=== PATIENT | male | born 1995 | race Caucasian/White ===

== ENCOUNTER 2019-02-02 19:26 | Emergency (ER) | payer OTHER ==
[~2019-02-02] VITALS: Ht 170.2 cm; Wt 61.8 kg
[~2019-02-02 19:26] MED LIST: BENTYL 20 MG TA20 M1 PO; CIPRO500 MG PO; CIPROFLOXACIN500 M1 PO; FLAGYL500 MG PO; HYDROCODON-ACE1 EAC7 PO; IBUPROFEN 200200 M1 PO; IBUPROFEN 600600 M1 PO; IBUPROFEN 800800 MG PO; KEFLEX500 MG PO; NORCO 5-325 TA1 EACH PO; ONDANSETRON HCL4 M2 PO; PROMETHAZINE12.5 M1 PO; ROBAXIN500 MG PO; TRAMADOL 50 MG50 MG PO; ZOFRAN ODT4 MG PO; ZOLOFT25 MG PO
[2019-02-02] MEDS ORDERED: ACETAMINOPHEN-1 EAC1 PO (22:14)
[2019-02-02] MEDS ORDERED: TORADOL 10 MG T10 MG PO (22:14)
[2019-02-02 22:31] VITALS: BP 130/83
== END 2019-02-02 22:32 | disposition home or self-care (01) ==
LOC: M.ERS 19:26
DX: S62.101A Fracture of unspecified carpal bone, right wrist, initial encounter for closed fracture (principal); S00.83XA Contusion of other part of head, initial encounter; Z91.041 Radiographic dye allergy status; Z90.49 Acquired absence of other specified parts of digestive tract; Y04.2XXA Assault by strike against or bumped into by another person, initial encounter; Y92.89 Other specified places as the place of occurrence of the external cause; Y93.89 Activity, other specified; Y99.8 Other external cause status

== ENCOUNTER 2019-03-10 17:08 | Emergency (ER) | payer OTHER ==
[~2019-03-10] VITALS: Ht 170.2 cm; Wt 63.5 kg
[~2019-03-10 17:08] MED LIST changes: +ACETAMINOPHEN-1 EAC1 PO; +TORADOL 10 MG T10 MG PO
[2019-03-10 17:25] LABS: URINE BILIRUBIN NEGATIVE (Negative); URINE BLOOD NEGATIVE (Negative); URINE CLARITY CLEAR; URINE COLOR YELLOW; URINE GLUCOSE-RANDOM NEGATIVE (Negative); URINE KETONES NEGATIVE (Negative); URINE LEUKOCYTES-REFLEX NEGATIVE (Negative); URINE NITRITE-REFLEX NEGATIVE (Negative); URINE PROTEIN NEGATIVE (Negative); URINE UROBILINOGEN 0.2 E.U./dl (0.2-1.0)
[2019-03-10 17:54] LABS: ABSOLUTE BASOPHILS 0.1 thou/uL (0.0-0.2); ABSOLUTE EOSINOPHILS 0.1 thou/uL (0.0-0.7); ABSOLUTE LYMPHOCYTES 1.9 thou/uL (0.8-5.3); ABSOLUTE MONOCYTES 0.5 thou/uL (0.0-1.2); ABSOLUTE NEUTROPHILS 3.4 thou/uL (1.6-8.1); BASOPHILS 1.3 %; EOSINOPHILS 1.4 %; HEMATOCRIT 42.8 % (42.0-52.0); LYMPHOCYTES 32.6 %; MCH 33.4 pg (26.0-34.0); MCV 95.4 fL (80.0-100.0); MPV 7.5 fl. (7.2-11.1); NUCLEATED RBCS 0 /100WBC; PLATELET COUNT* 259 thou/uL (150-400); POLYS 56.7 %; RBC 4.49 mil/uL (4.50-6.00); RDW-CV 13.4 % (10.5-14.5)
[2019-03-10 18:01] LABS: CALCIUM 9.3 mg/dL (8.5-10.1); CREATININE 0.9 mg/dL (0.6-1.3); POTASSIUM 3.8 mmol/L (3.5-5.1)
[2019-03-10 18:05] LABS: ALBUMIN 4.2 g/dL (3.4-5.0); TOTAL BILIRUBIN 0.6 mg/dL (<0.1-1.0); TOTAL PROTEIN 7.5 g/dL (6.4-8.2)
[2019-03-10] MEDS ORDERED: CIPRO500 M1 PO (19:00)
[2019-03-10] MEDS ORDERED: FLAGYL500 M1 PO (19:00)
[2019-03-10] MEDS ORDERED: NORCO 5-325 TA1 EACH PO (19:02)
[2019-03-10] MEDS ORDERED: ACETAMINOPHEN-1 EAC1 PO (19:03)
[2019-03-10] MEDS ORDERED: OMEPRAZOLE 20 M20 M1 PO (19:12)
[2019-03-10] MEDS ORDERED: CARAFATE 1 GM TA1 G1 PO (19:12)
[2019-03-10 19:26] VITALS: BP 127/87
== END 2019-03-10 19:28 | disposition home or self-care (01) ==
LOC: M.ERS 17:08
PROVIDERS: Nurse Practitioner Family
DX: K52.9 Noninfective gastroenteritis and colitis, unspecified (principal); F17.210 Nicotine dependence, cigarettes, uncomplicated; Z90.49 Acquired absence of other specified parts of digestive tract; Z86.14 Personal history of Methicillin resistant Staphylococcus aureus infection; Z91.041 Radiographic dye allergy status

== ENCOUNTER 2019-03-15 16:11 | Inpatient (IN) | payer OTHER ==
[~2019-03-15] VITALS: Ht 170.2 cm; Wt 73.5 kg
--- NOTE | ~2019-03-15 | CON ---
[address] [address] CONSULTATION Name: CHARITY COLLINS Room: [address] IN .R.#: [id number] Admission: 03/15/19 Attend Phys: Lyndsey Garcai Discharge: Date of : 95 Report #: [id number] THIS REPORT FOR: //name// CC: ALPHONSO physician/PCP Sue Weber DATE OF SERVICE: 03/16/2019 NEPHROLOGY CONSULTATION: CONSULTING PHYSICIAN: Dr. Villanueva. REASON FOR NEPHROLOGY CONSULTATION: Acute kidney injury. REASON FOR ADMISSION: Bloody stool and acute renal insufficiency. HISTORY OF PRESENT ILLNESS: This is a 23-year-old male who has no past medical history, has been having vomiting and diarrhea for the past 1-1/2 weeks and has not been eating much. He was in the hospital here 1 week ago and he was given a shot of Toradol. He was also taking ibuprofen at home every 6-8 hours and was discharged with Cipro and Flagyl from the ER, which he has been taking, but his symptoms did not improve, hence he came to the ER yesterday. His creatinine was found to be 2.6 on admission and 3.6 subsequently. His CPK level is normal. He is also having some pain when he urinates, but UTI was ruled out. Bladder scan is yet to be checked. He has no history of any kidney stones and renal imaging did not show any stones or obstruction as well. ALLERGIES: BARIUM, IODINE. REVIEW OF SYSTEMS: As mentioned in history of present illness, otherwise negative. PAST MEDICAL HISTORY: Which includes nothing. PAST SURGICAL HISTORY: Tonsillectomy and appendectomy. FAMILY HISTORY: Hypertension, diabetes, blood clots, and CAD and one cousin on father's side has kidney stones. HOME MEDICATIONS: Recently started omeprazole, Tylenol with Codeine. He was taking ibuprofen, Cipro and Flagyl. PHYSICAL EXAMINATION: VITAL SIGNS: Blood pressure is 121/79, respiratory rate is 18, pulse rate of 46, temperature 36.7, pulse ox 99% on room air. GENERAL: He is awake and alert, but he is quite [place] [address] CONSULTATION Name: CHARITY COLLINS Room: [address] IN [facility]#: [id number] Admission: 03/15/19 Attend Phys: Lyndsey Garcia Discharge: Date of : 95 Report #: [id number] symptoms. He is oriented x 3. HEAD AND EYES: Normocephalic and atraumatic. EARS, NOSE, AND THROAT: Mucous membranes are moist. CHEST: Bilaterally clear to auscultation, no crackles or wheezing. CARDIOVASCULAR: S1, S2 normal, no murmurs are heard. ABDOMEN: Soft, nondistended, nontender, normal bowel sounds present. EXTREMITIES: There is no lower extremity edema, symmetrical lower extremities. NEUROLOGICAL FUNCTION: Gross neurological function seems to be intact. PSYCHIATRIC: Mood and affect seem to be normal. LABORATORY DATA: Hemoglobin 13.4, potassium 3.2, sodium 143, creatinine 3.2, BUN is 18. Other labs were reviewed. IMAGING: Renal CT was reviewed. ASSESSMENT: 1. Acute kidney injury in the setting of dehydration due to diarrhea, vomiting, poor oral intake and NSAID use, creatinine is 0.9 on 03/10/2019 and 2.6 on admission, now creeping up. 2. Diarrhea, bloody stools and vomiting as per Internal Medicine and he is on ciprofloxacin and Flagyl. 3. No evidence of any rhabdomyolysis. 4. Burning when he urinates, but no evidence of urinary tract infection. 5. Difficulty urinating, bladder scan to be checked. 6. Hypokalemia. PLAN: Potassium will be replaced, continue IV fluids, normal saline at 150 mL an hour, check a bladder scan, I's and O's. Labs in the morning. Thank you for this consultation. We will continue to follow along with you. UA was reviewed and showed 1+ protein and no blood in it and only trace ketones, more pointing towards dehydration. Thank you for this consultation. We will continue to follow along with you. By: 1029 Fam Wheeler MD /nt
--- NOTE | ~2019-03-15 | CON ---
[address] [address] CONSULTATION Name: CHARITY COLLINS Room: [address] IN M.R.#: [id number] Admission: 03/15/19 Attend Phys: Lyndsey Garcia Discharge: Date of : 95 Report #: [id number] THIS REPORT FOR: //name// CC: ALPHONSO physician/PCP Sue Weber HISTORY OF PRESENT ILLNESS: Pleasant 23-year-old gentleman with no significant past medical history who is presenting for evaluation of colitis. The patient reports this was first diagnosed in about 3 months back when he presented with abdominal pain and hematochezia. The patient does not have any insurance and did not seek any followup. Now, he presents with recurrent episodes of abdominal pain, diarrhea and hematochezia. The patient reports the worst hematochezia was about 1 week back, but since then, has had intermittent bleeding from his bottom. He reports bleeding with every bowel movement and has about 5-6 bowel movements per day. He reports associated abdominal pain located in the lower abdominal region, which appears to be worthwhile passing stool. The patient also reports tenesmus and sense of incomplete evacuation. The patient denies any recent travel, sick contacts or antibiotic use. PAST MEDICAL HISTORY: None significant. PAST SURGICAL HISTORY: The patient has remote history of appendectomy. SOCIAL HISTORY: The patient reports smoking half pack per day. Reports intermittent alcohol use and intermittent marijuana use. FAMILY HISTORY: There is no history of inflammatory bowel disease. REVIEW OF SYSTEMS: A comprehensive 10-point review of systems is negative except for what was mentioned in the HPI. PHYSICAL EXAMINATION: GENERAL: The patient is alert, awake, oriented x 3. VITAL SIGNS: Temperature 36.4, pulse rate 82, respirations 16, blood pressure 115/60. HEENT: Mucous membranes are moist. There is no congestion. LUNGS: Clear to auscultation bilaterally. CARDIOVASCULAR: Rate and rhythm regular, S1, S2 present. ABDOMEN: Soft. There is no distention, guarding or rigidity. EXTREMITIES: Warm and well perfused. There is no edema. SKIN: Warm and dry. LABORATORY DATA: Hemoglobin 13.4, hematocrit 39.2, platelet count 156, WBC count 7.1. Sodium 143, potassium 3.0, chloride 108, bicarbonate 24, BUN 8, creatinine 0.6. Urine THC and opiates screen positive. On 03/10/2019, CT abdomen and pelvis does demonstrates circumferential continuous wall thickening of the ascending colon "apparent colitis or [place] [address] CONSULTATION Name: KARINACHARITY Finn Room: [address] IN [facility]#: [id number] Admission: 03/15/19 Attend Phys: Lyndsey Garcia Discharge: Date of : 95 Report #: [id number]." Previous history of appendectomy. ASSESSMENT AND PLAN: Pleasant 23-year-old gentleman presenting with abdominal pain, hematochezia and found to have thickening of the colon on CT scan. The patient has not had any bowel movements. We will proceed with colonoscopy tomorrow to evaluate the colon for inflammatory bowel disease. Thank you for this consultation. Please do not hesitate to call us with any questions. By: [id number] Swann MD /nt
[~2019-03-15 16:11] MED LIST changes: +CARAFATE 1 GM TA1 G1 PO; +CIPRO500 M1 PO; +FLAGYL500 M1 PO; +OMEPRAZOLE 20 M20 M1 PO
[2019-03-15 16:21] VITALS: BP 131/59
[2019-03-15 16:37] LABS: URINE BILIRUBIN NEGATIVE (Negative); URINE BLOOD NEGATIVE (Negative); URINE CLARITY CLEAR; URINE COLOR YELLOW; URINE GLUCOSE-RANDOM NEGATIVE (Negative); URINE KETONES TRACE (Negative); URINE LEUKOCYTES-REFLEX NEGATIVE (Negative); URINE NITRITE-REFLEX NEGATIVE (Negative); URINE PROTEIN 1+ (Negative); URINE SPECIFIC GRAVITY 1.025 (1.005-1.030); URINE UROBILINOGEN 0.2 E.U./dl (0.2-1.0)
[2019-03-15 16:50] LABS: ABSOLUTE EOSINOPHILS 0.1 thou/uL (0.0-0.7); ABSOLUTE LYMPHOCYTES 0.9 thou/uL (0.8-5.3); ABSOLUTE MONOCYTES 0.5 thou/uL (0.0-1.2); ABSOLUTE NEUTROPHILS 4.4 thou/uL (1.6-8.1); BASOPHILS 0.3 %; HEMATOCRIT 45.1 % (42.0-52.0); HEMOGLOBIN 15.5 gm/dL (14.0-18.0); LYMPHOCYTES 15.6 %; MCH 33.3 pg (26.0-34.0); MCHC 34.4 g/dL (28.0-37.0); MCV 96.7 fL (80.0-100.0); MONOCYTES 8.9 %; MPV 7.3 fl. (7.2-11.1); NUCLEATED RBCS 0 /100WBC; PLATELET COUNT* 212 thou/uL (150-400); POLYS 74.2 %; RBC 4.67 mil/uL (4.50-6.00); RDW-CV 13.1 % (10.5-14.5); WBC 5.9 thou/uL (4.0-11.0)
[2019-03-15 16:58] LABS: CALCIUM 9.5 mg/dL (8.5-10.1); CREATININE 2.6 mg/dL (0.6-1.3); POTASSIUM 3.3 mmol/L (3.5-5.1)
[2019-03-15 17:03] LABS: TOTAL BILIRUBIN 0.3 mg/dL (<0.1-1.0); TOTAL PROTEIN 6.8 g/dL (6.4-8.2)
[2019-03-15 18:30] VITALS: BP 115/67
[2019-03-15 20:00] VITALS: BP 114/78
[2019-03-16] VITALS: BP 129/73
[2019-03-16 03:50] VITALS: BP 117/67
[2019-03-16 04:58] LABS: HEMATOCRIT 39.2 % (42.0-52.0); MCH 33.5 pg (26.0-34.0); MCHC 34.1 g/dL (28.0-37.0); MCV 98.3 fL (80.0-100.0); RBC 3.99 mil/uL (4.50-6.00); RDW-CV 13.2 % (10.5-14.5); WBC 7.1 thou/uL (4.0-11.0)
[2019-03-16 05:07] LABS: CALCIUM 8.2 mg/dL (8.5-10.1); POTASSIUM 3.2 mmol/L (3.5-5.1)
--- NOTE | 2019-03-16 05:08 | NUR ---
ASSUMED PATIENT CARE AT 1900. SECOND IV LINE STARTED DUE TO IV ABT'S NOT BEING COMPATIBLE WITH PROTONIX DRIP. PATIENT UNABLE TO TOLERATE MORPHINE HIS HEARTRATE DROPS INTO THE 30'S. ONE BOUT OF EMESIS NOTED. HAS REMAINED NPO THROUGHOUT SHIFT FOR GI CONSULT. ALERT AND ORIENTED TIMES FOUR. 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
[2019-03-16 05:22] LABS: HEMOGLOBIN 13.4 gm/dL (14.0-18.0)
[2019-03-16 05:36] LABS: CREATININE 3.6 mg/dL (0.6-1.3)
[2019-03-16 08:00] VITALS: BP 121/79
--- NOTE | 2019-03-16 11:04 | NUR ---
Pt is A&O. Resides at home with his family. Active and independent, works. No DME, HH or SNF. Goal is home at pr. Following.
--- NOTE | 2019-03-16 11:35 | EKG ---
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: MS : 1995 Requested By: Chase Yi Order Number: [id number] MD: Dean Jordan Measurements Intervals [place] Rate: 46 P: 71 GA: 143 QRS: 74 QRSD: 105 T: 53 QT: 424 QTc: 371 Interpretive Statements Sinus bradycardia RSR' in V1 or V2, right VCD or RVH Compared to ECG 02/15/2017 14:08:00 Right ventricular hypertrophy now present RSR' in V1 or V2 now present Sinus arrhythmia no longer present Electronically Signed On 03-16-2019 11:35:00 CDT by Dean Jordan [email or web address] <ELECTRONICALLY SIGNED> By: Dean Jordan MD, [facility] 03/16/19 1135 1758 1758 Dean Jordan MD, [facility] /EPI
[2019-03-16 11:38] VITALS: BP 113/58
[2019-03-16 13:00] LABS: AMP/METHAMP Negative (Negative); BARBITURATES Negative (Negative); BENZODIAZEPINES Negative (Negative); COCAINE Negative (Negative); METHADONE Negative (Negative); OPIATES POSITIVE (Negative); PCP Negative (Negative); THC POSITIVE (Negative)
[2019-03-16 15:29] VITALS: BP 116/60
--- NOTE | 2019-03-16 16:52 | NUR ---
SHIFT NOTE - PT ASKING FOR PAIN MED AND NAUSEA MEDS FOR THIS SHIFT. ON CLEAR LIQUID FOR DINNER AND WILL HAVE GI PROCEDURE IN AM. COLON PREP THIS EVENING. WILL CONTINUE TO MONITOR.
[2019-03-16 20:00] VITALS: BP 115/60
[2019-03-17] VITALS (7 sets, daily range): BP systolic 108–136; BP diastolic 57–92
[2019-03-17 04:40] LABS: HEMATOCRIT 38.2 % (42.0-52.0); HEMOGLOBIN 13.2 gm/dL (14.0-18.0); MCH 34.1 pg (26.0-34.0); MCHC 34.6 g/dL (28.0-37.0); MCV 98.5 fL (80.0-100.0); MPV 8.1 fl. (7.2-11.1); RBC 3.88 mil/uL (4.50-6.00); RDW-CV 13.1 % (10.5-14.5)
[2019-03-17 04:50] LABS: CALCIUM 7.9 mg/dL (8.5-10.1); CREATININE 3.8 mg/dL (0.6-1.3); POTASSIUM 3.4 mmol/L (3.5-5.1)
--- NOTE | 2019-03-17 05:07 | NUR ---
ASSUMED PATIENT CARE AT 1900. PATIENT ALERT AND ORIENTED TIMES FOUR. FLAT AFFECT. STATES THAT HE HAS "THROWN UP" SEVERAL TIMES, NO EVIDENCE OF SUCH. CLAIMS THAT HIS BM IS CLR WATER AT THIS POINT. COMPLAINTS OF PAIN, CONTROLLED WITH IV PAIN MEDICATION. GRIEVANCE MANAGER AND HOURLY ROUNDING COMPLETED DOCUMENTED.
--- NOTE | 2019-03-17 08:00 | NUR ---
AM ASSESSEMENT COMPLETE, DEFER TO COMPUTER CHARTING. CERTIFIED MIDWIFE TRACKING SB - DENIES CHEST PAIN, DIZZINESS. PATIENT DOES REPORT HAVING BACK AND ABD DISCOMFORT, UNABLE TO GIVE REPEAT PAIN MED AT THIS TIME BUT NURSE WILL GIVEN WHEN TIME FRAME FOR MED AVAILABLE PER ORDERS. REMAINS NPO FOR GI PROCEDURE, IV FLUIDS INFUSING. PALE IN COLOR. CALL LIGHT WITHIN REACH. WILL MONITOR.
--- NOTE | 2019-03-17 15:36 | NUR ---
PATIENT RETURNING FROM RECOVERY/GI LAB - COLONOSCOPY COMPLETED. IV FLUIDS INFUSING. NO COMPLAINTS OF NAUSEA OR PAIN AT THIS TIME. GIVEN LUNCH SANDWICH TRAY. TAX EVALUATOR TRACKING SA WITH RATE 40-TO 40'S. CALL LIGHT WITHIN REACH. WILL MONITOR.
--- NOTE | 2019-03-17 18:07 | NUR ---
HEEL SEAT FITTER TRACKING SB RATE IN 30'S AT TIMES, DR MCKEE ON FLOOR NOTIFIED. MIN DIETARY INTAKE, IV FLUIDS INFUSING. FLAT AFFECT, FRUSTRATED - RESSURANCE GIVEN. CALL LIGHT WITHIN REACH. WILL CONTINUE WITH PLAN OF CARE.
[2019-03-17 18:43] LABS: CALCIUM 7.9 mg/dL (8.5-10.1); MAGNESIUM 1.4 mg/dL (1.8-2.4); POTASSIUM 3.6 mmol/L (3.5-5.1)
[2019-03-17 18:44] LABS: CREATININE 2.8 mg/dL (0.6-1.3)
--- NOTE | 2019-03-17 20:00 | NUR ---
RECEIVED REPORT AND ASSUMED CARE OF PT, ASSESSMENT COMPLETED. FAMILY IN ROOM. ASKING ABOUT LAB RESULTS AND HOW KIDNEYS WERE. EDUCATED AND REASSURANCE GIVEN. TELEMETRY ON SHOWING ARNAV, SINUS ARRHYTHMIA. WILL CONT TO MONITOR AND ASSIST NEEDED.
[2019-03-18] VITALS: BP 122/72; BP 122/80; BP 125/60
[2019-03-18 04:00] VITALS: BP 122/80
--- NOTE | 2019-03-18 06:26 | NUR ---
AWAKE MOST OF NIGHT. C/O ABD AND CHEST PAIN, IV PAIN MED GIVEN X1 AND EFFECTIVE. HR REMAINS 30-40'S, ASYMPTOMATIC. HS GOALS OF REST AND SAFETY ACHIEVED. HOURLY ROUNDING OBSERVED.
[2019-03-18 08:00] VITALS: BP 121/73
[2019-03-18] MEDS ORDERED: PHENERGAN 25 MG25 M1 PO (10:55)
[2019-03-18] MEDS ORDERED: NICOTINE TRANSD14 M1 TRANSDERM (10:55)
[2019-03-18] MEDS ORDERED: METRONIDAZOLE500 M4 PO (10:55)
[2019-03-18] MEDS ORDERED: OXYCODONE HCL 55 MG PO (10:55)
[2019-03-18] MEDS ORDERED: CIPRO500 MG PO (10:55)
[2019-03-18] MEDS ORDERED: BENTYL 10 MG CA10 M1 PO (10:55)
[2019-03-18 12:00] VITALS: BP 129/75
[2019-03-18 16:00] VITALS: BP 148/79
--- NOTE | 2019-03-18 19:34 | NUR ---
RECEIVED REPORT FROM MARYURI STRICKLAND. ASSUMED CARE OF PT AROUND 0730. PT A&O X4, VSS, BUT PT BRADICARDIC - 30-40'S, ASYMPTOMATIC. PT COMPLAINING OF CHEST TIGHTNESS INTERMITTENTLY. CARDIOLOGY CONSULETED - NO ORDERS RECEIVED FROM DR NIETO OTHER THAN TO MONITOR PT OVERNIGHT. PT RECEIVED IV AND PO PAIN MEDICATION THIS SHIFT WITH PARTIAL RELIEF. MOTHER VISITED THIS AM - GAVE UPDATE. PT NAUSEOUS OFF AND ON, POOR APPETITE. MEDS PER EMAR. IV FLUIDS MAINTAINED. URINE OUTPUT GOOD. PT FRUSTRATED WTIH BEING IN HOSPITAL, REASSURANCE GIVEN. PT CURRENTLY WATCHING TV IN BED. CALL LIGHT IS WITHIN REACH. HORULY ROUNDING PERFORMED. LOW FALL RISK PRECAUTIONS IN PLACE.
[2019-03-18 20:00] VITALS: BP 132/72
[2019-03-19] VITALS (8 sets, daily range): BP systolic 118–143; BP diastolic 72–83
[2019-03-19 04:55] LABS: ALBUMIN 2.7 g/dL (3.4-5.0); POTASSIUM 3.8 mmol/L (3.5-5.1); TOTAL BILIRUBIN 0.2 mg/dL (<0.1-1.0); TOTAL PROTEIN 4.9 g/dL (6.4-8.2)
[2019-03-19 04:58] LABS: CREATININE 1.4 mg/dL (0.6-1.3)
--- NOTE | 2019-03-19 05:31 | NUR ---
ASSUMED PT CARE AT APPROX 1930. PT IS AWAKE AND ORIENTED X4. VSS ON ROOM AIR. CAFE ASSISTANT IN PLACE TRACING SB (30'S-40's) PT REMAINED ASYMPTOMATIC. PT C/O BACK AND ABDOMINAL PAIN RELIEVED BY PAIN MEDS GIVEN PER DEC. PT WAS ABLE TO SLEEP MOST OF THE NIGHT. CALL LIGHT WITHIN REACH. HOURLY ROUNDING DONE FOR PT SAFETY.
--- NOTE | 2019-03-19 10:43 | CON ---
[address] [address] CONSULTATION Name: CHARITY COLLINS Room: [address] IN [facility].#: [id number] Admission: 03/15/19 Attend Phys: Lyndsey Garcia Discharge: Date of : 95 Report #: [id number] THIS REPORT FOR: //name// CC: ALPHONSO physician/PCP Sue Weber DATE OF SERVICE: 03/18/2019 CARDIOLOGY CONSULT INDICATION: Bradycardia. HISTORY OF PRESENT ILLNESS: The patient is a 23-year-old gentleman who was admitted to the hospital with abdominal pain and rectal bleeding. Today, the patient has been noted to have heart rates in the 30s. Telemetry shows sinus bradycardia. Heart rates occurred while the patient is at rest in bed. Apparently, he does have a faster heart rate when he is up and more active. When questioned, the patient reports lightheadedness, dizziness, and intermittent episodes of syncope over the last 5 years. He reports being on no medications at home. He denies any prior cardiac history. He also notes some occasional chest tightness. EKG shows sinus bradycardia with no significant ST or T-wave abnormalities. He is without other cardiac complaint. PAST MEDICAL/SURGICAL HISTORY: 1. Possible colitis. 2. Right elbow fracture. 3. Appendectomy. 4. Tonsillectomy. FAMILY HISTORY: Positive for heart disease in his father's side of the family. 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 He drinks alcohol occasionally, smokes half pack of cigarettes daily. He is single. ALLERGIES: BARIUM. CURRENT MEDICATIONS: Ciprofloxacin 500 mg b.i.d., Tylenol No. 3 p.r.n., Bentyl 10 mg t.i.d., metronidazole 500 mg t.i.d., nicotine patch daily, omeprazole 20 mg daily, oxycodone IR 5 mg every 3 hours p.r.n., promethazine 25 mg every 3 hours p.r.n., and Carafate 1 gram p.o. every 6 hours. REVIEW OF SYSTEMS: A 14-point review of systems is positive for weakness, daily cough productive of dark sputum, dyspnea on exertion, blood in the stool, medical allergy as outlined above, depression, anxiety, and a history of MRSA. A 14-point review of [place] [address] CONSULTATION Name: KARINACHARITY Room: [address]#: [id number] Admission: 03/15/19 Attend Phys: Lyndsey Garcia Discharge: Date of : 95 Report #: [id number] PHYSICAL EXAMINATION: VITAL SIGNS: Presently, blood pressure 129/75 and pulse 43. GENERAL: This is a pleasant gentleman with somewhat blunted affect. HEENT: Head is normocephalic and atraumatic. Extraocular muscles are intact. Mucous membranes are moist. NECK: Shows no jugular venous distention. There are no carotid bruits. CHEST: Reveals clear lung coker. CARDIOVASCULAR: Reveals regular rhythm that is slow. I do not appreciate gallop or murmur. ABDOMEN: Reveals normal bowel sounds. The abdomen is soft and nontender. EXTREMITIES: Shows no edema. Peripheral pulses are 2+ and palpable. SKIN: Warm and dry. RADIOLOGIC DATA: A 12-lead EKG shows sinus rhythm with no significant ST or T-wave abnormalities. LABORATORY DATA: TSH is within normal limits. IMPRESSION AND RECOMMENDATIONS: Bradycardia with possible symptoms to include lightheadedness and dizziness. At this point, I would have the patient increase his activities. I would discontinue Phenergan as this may be contributing to bradycardia. I do not see any other offensive medications on his list at this time. Continue telemetry monitoring. <ELECTRONICALLY SIGNED> By: Scott Katz MD, FACC 03/19/19 1043 1541 [id number] Katz MD, FACC /nt
--- NOTE | 2019-03-19 11:54 | NUR ---
ASSESSMENT COMPLETE. PT ALERT AND ORIENTED X4. PT REPORTED BACK AND RIGHT ELBOW PAIN THIS AM, PRN OXY GIVEN. PT ALSO REPORTS NAUSEA, ZOFRAN GIVEN. PT IS SINUS ARNAV IN 30'S ON TELE MONITOR, VSS. PT IS UP STANDBY ASSIST. CIPRO AND FLAGYL GIVEN SCHEDULED. PT HAS IV FLUIDS INFUSING. PT IS SLEEPING AND HAS NO OTHER CONCERNS AT THIS TIME. SEE ASSESSMENT AND VITALS FOR OTHER DETAILS. CALL LIGHT WITHIN REACH, WILL CONTINUE PLAN OF CARE
[2019-03-19] MEDS ORDERED: COMPAZINE10 MG PO ×2 (12:12→12:14)
--- NOTE | 2019-03-20 10:09 | H ---
[address] [address] HISTORY AND PHYSICAL Name: CHARITY COLLINS Room: [address] IN [facility].#: [id number] Admission: 03/15/19 Attend Phys: Lyndsey Garcia Discharge: 03/19/19 Date of : 95 Report #: [id number] THIS REPORT FOR: //name// CC: ALPHONSO physician/PCP Sue Weber DATE OF SERVICE: 03/15/2019 CHIEF COMPLAINT: Bloody stool. HISTORY OF PRESENT ILLNESS: The patient is a 23-year-old gentleman who presented to us here for bloody stools. The patient states that he was having on and off rectal bleeding for about 6 months now. He does not have any insurance, so he decided not to come in. However, he had more spotting and really had bloody stools 5 days ago, so he came to the Emergency Room, was given omeprazole, Flagyl and Cipro and also was given Tylenol with Codeine. He was then discharged to home. He ran out of codeine, so he decided to take Tylenol alternating with ibuprofen the last few days. He also has been vomiting on and off and has vomited 3 times a day. He is having abdominal pain, more so on the right upper quadrant now and in the left lower quadrant. Previously, his abdominal pain described as more on the right lower quadrant. He has decreased p.o. intake as he has been nauseous. He finally came to the Emergency Department and he is noted to have acute renal failure and being admitted for that. PAST MEDICAL HISTORY: Pretty healthy prior to this and does have this bloody stools for about 6 months, now worked up. He denies any other medical problems. PAST SURGICAL HISTORY: Tonsillectomy and appendectomy. FAMILY HISTORY: Hypertension, diabetes, blood clots and CAD. ALLERGIES: none. HOME MEDICATIONS: Just recently started on omeprazole, Tylenol with Codeine, Cipro and Flagyl and currently he is tylenol#3, Cipro and Flagyl. REVIEW OF SYSTEMS: The patient denies any fever, but does have chills. Does have the nausea, vomiting, abdominal pain, had rectal bleeding, also has dysuria. He also has bilateral flank pain. He denies any chest pain, but occasionally he would get that. He denies any shortness of breath. A 12-point review of system unremarkable aside from mentioned above. PHYSICAL EXAMINATION: VITAL SIGNS: Temperature is 36.4, heart rate 51, respiratory rate 11, blood pressure is 115/67, 99% [place] [address] HISTORY AND PHYSICAL Name: CHARITY COLLINS Room: [address]#: [id number] Admission: 03/15/19 Attend Phys: Lyndsey Garcia Discharge: 03/19/19 Date of : 95 Report #: [id number] GENERAL: The patient is alert. He is oriented x 3, not in acute respiratory distress. HEENT: Normocephalic, atraumatic. Nares patent. Clear oropharynx. He does have some dry mucous membrane. NECK: Supple. No lymphadenopathy. CARDIOVASCULAR: Normal rate, regular rhythm. No murmurs noted. RESPIRATORY: Clear to auscultation bilaterally. No wheeze, no crackles. GASTROINTESTINAL: Abdomen soft. He is diffusely tender, especially in the epigastric area. He does have positive CVA tenderness. MUSCULOSKELETAL: Good strength. NEUROLOGIC: Grossly normal. LABORATORY DATA: CBC showed hemoglobin 15.5, WBC is 5.9, platelet count is 212. Chemistry showed sodium is 142, potassium is 3.3, chloride is 106, carbon dioxide is 20, anion gap is 10, BUN is 6, creatinine is 2.6, up from a baseline of normal. Glucose 101, calcium is 9.8, total bilirubin is 0.3, AST 24, ALT 27, alkaline phosphatase 42. Total protein 6.8, albumin is 2.4. Urine show urine protein is 1+, urine ketones is trace, leukocyte esterase negative and random glucose negative. IMPRESSION: The patient is a 23-year-old gentleman admitted in the hospital for: 1. Rectal bleeding, possible colitis, rule out diabetes. 2. Acute renal failure, likely secondary to prerenal from decreased p.o. intake and nausea and vomiting. NSAids probably contributing too 3. Possible bilateral flank pain, rule out kidney stones given the renal failure. 4. Possible peptic ulcer disease. 5. Hypokalemia. PLAN: The patient will be admitted. The patient is going to be here more than 2 midnights as he failed outpatient therapy given the chills and we will go ahead and send him for blood cultures. I will send him for a renal CT. We will ask GI to see, give him fluids and continue antibiotics that have been started. Discussed with the patient regarding code status and he is a full code. <ELECTRONICALLY SIGNED> By: Sue Weber MD 03/20/19 1009 1752 0021Rosecarl Weber MD /PMT
--- NOTE | 2019-03-20 13:29 | EKG ---
[place] [address] ELECTROCARDIOGRAM REPORT Name: CHARITY COLLINS Room: [address] IN M.R.#: [id number] Admission: 03/15/19 Attend Phys: Lyndsey Garcia Discharge: 03/19/19 Date of : 95 Report #: [id number] THIS REPORT FOR: //name// [facility] Test Date: 2019-03-18 Test Time: 12:54:34 Pat Name: CHARITY COLLINS Department: Room: [address] Gender: M Fisher Terrapin: : 1995 Requested By: Kushal Forde Order Number: [id number] Nikolas MD: Kj Bellamy Measurements Intervals [place] Rate: 39 P: 65 LA: 141 QRS: 57 QRSD: 99 T: 53 QT: 446 QTc: 360 Interpretive Statements Sinus bradycardia Low voltage, extremity leads Compared to ECG 03/15/2019 17:58:38 Low QRS voltage now present Right ventricular hypertrophy no longer present Electronically Signed On 03-20-2019 13:28:50 CDT by Kj Bellamy [email or web address] <ELECTRONICALLY SIGNED> By: Kj Bellamy MD, [facility] 03/20/19 1328 1254 1254 Kj Bellamy MD, [facility] /EPI
--- NOTE | 2019-03-20 17:07 | PATH ---
[facility] [address] [place] [address] PATHOLOGY RPT PROCEDURE Name: SUHAS WORTHINGTON Room: [address] IN M.R.#: [id number] Admission: 03/15/19 Date of : 95 Discharge: 03/19/19 Report #: [id number] Path Case #: [id number] [facility] Accession Number: [id number] . 01 Material submitted: . PART A: colon - RANDOM ASCENDING COLON BIOPSIES. Modifiers: ascending PART B: rectum - RECTAL BIOPSY; RULE OUT IBD . 01 Clinical history: . None provided . 02 Diagnosis: A. Random ascending colon biopsies: - Focal fresh hemorrhage in otherwise normal colonic mucosa. . B. Rectal biopsies: - Prominent lymphoid follicles (Peyer's patches) in otherwise normal colonic mucosa. (TAO:leta 03/20/2019) QMS/03/20/2019 . 02 Electronically signed: . Chadwick Mendiola MD, Pathologist NPI- [id number] . 01 Gross description: . A. Received in formalin labeled "Suhas Worthington, random ascending colon biopsies," are 5 segments of mckinley soft tissue measuring 1.0 x 0.7 x 0.1 cm in aggregate dimensions and ranging from 0.1 to 0.4 cm in maximum dimension. The specimen is submitted entirely in cassette A1. . B. Received in formalin labeled "Suhas Worthington, rectal biopsies, rule out IBD," are 3 segments of mckinley soft tissue measuring 0.9 x 0.8 x 0.1 cm in aggregate dimensions and ranging from 0.1 to 0.5 cm in maximum dimension. The specimen is submitted entirely in cassette B1. (TSD; 03/17/2019) TOB/TOB . 02 Pathologist provided ICD-10: Z03.89 . 02 CPT . 752103, 608995 Specimen Comment: A courtesy copy of this report has been sent to Specimen Comment: [phone], . Specimen Comment: Report sent to / DR GRANADO Performed at: [address] [place] [address] PATHOLOGY RPT PROCEDURE Name: SUHAS WORTHINGTON P Room: [address] IN [facility].#: [id number] Admission: 03/15/19 Date of : 95 Discharge: 03/19/19 Report #: [id number] Path Case #: [id number] [address], EMILI Hernandez [id number] MD Volodymyr Danielle MD Phone: [phone] Performed at: 02 [facility] [address], [place], [place] [id number] MD Chadwick Mendiola MD Phone: [phone]
== END 2019-03-19 13:25 | disposition home or self-care (01) | DRG 392 ==
LOC: M.ERS 16:11 → M.TBA-ER 17:33 → M.2W 17:42 → M.TBA-ER 17:42 → M.2W 18:46
PROVIDERS: Internal Medicine; Internal Medicine Nephrology; Nurse Practitioner Family; ADMIT Internal Medicine
PROC: 0DBK8ZX Excision of Ascending Colon, Via Natural or Artificial Opening Endoscopic, Diagnostic (ICD-10-PCS; principal; 2019-03-17)
PROC: 0DBP8ZX Excision of Rectum, Via Natural or Artificial Opening Endoscopic, Diagnostic (ICD-10-PCS; principal; 2019-03-17)
DX: K52.9 Noninfective gastroenteritis and colitis, unspecified (principal); N17.9 Acute kidney failure, unspecified; K92.1 Melena; E87.6 Hypokalemia; E86.0 Dehydration; F17.210 Nicotine dependence, cigarettes, uncomplicated; R00.1 Bradycardia, unspecified; Z91.041 Radiographic dye allergy status; Z90.89 Acquired absence of other organs; Z90.49 Acquired absence of other specified parts of digestive tract; Z82.49 Family history of ischemic heart disease and other diseases of the circulatory system; Z83.3 Family history of diabetes mellitus; Z84.1 Family history of disorders of kidney and ureter; Z79.899 Other long term (current) drug therapy; Z84.89 Family history of other specified conditions

== ENCOUNTER 2019-08-29 00:47 | Emergency (ER) | payer OTHER ==
[~2019-08-29] VITALS: Ht 170.2 cm; Wt 61.2 kg
[~2019-08-29 00:47] MED LIST changes: +BENTYL 10 MG CA10 M1 PO; +COMPAZINE10 MG PO; +METRONIDAZOLE500 M4 PO; +NICOTINE TRANSD14 M1 TRANSDERM; +OXYCODONE HCL 55 MG PO; +PHENERGAN 25 MG25 M1 PO
[2019-08-29 01:22] LABS: ABSOLUTE LYMPHOCYTES 1.5 thou/uL (0.8-5.3); ABSOLUTE MONOCYTES 0.3 thou/uL (0.0-1.2); ABSOLUTE NEUTROPHILS 2.3 thou/uL (1.6-8.1); BASOPHILS 0.5 %; EOSINOPHILS 0.6 %; HEMATOCRIT 47.4 % (42.0-52.0); HEMOGLOBIN 16.8 gm/dL (14.0-18.0); LYMPHOCYTES 36.7 %; MCH 32.5 pg (26.0-34.0); MCHC 35.4 g/dL (28.0-37.0); MONOCYTES 6.1 %; MPV 7.5 fl. (7.2-11.1); NUCLEATED RBCS 0 /100WBC; PLATELET COUNT* 239 thou/uL (150-400); POLYS 56.1 %; RBC 5.16 mil/uL (4.50-6.00); RDW-CV 14.3 % (10.5-14.5); WBC 4.1 thou/uL (4.0-11.0)
[2019-08-29 01:24] LABS: CALCIUM 9.3 mg/dL (8.5-10.1); CREATININE 0.9 mg/dL (0.6-1.3); POTASSIUM 3.7 mmol/L (3.5-5.1)
[2019-08-29 01:28] LABS: ALBUMIN 4.7 g/dL (3.4-5.0); TOTAL BILIRUBIN 0.2 mg/dL (<0.1-1.0); TOTAL PROTEIN 8.5 g/dL (6.4-8.2)
[2019-08-29 01:29] LABS: URINE BILIRUBIN NEGATIVE (Negative); URINE BLOOD NEGATIVE (Negative); URINE CLARITY CLEAR; URINE COLOR STRAW; URINE GLUCOSE-RANDOM NEGATIVE (Negative); URINE KETONES NEGATIVE (Negative); URINE LEUKOCYTES-REFLEX NEGATIVE (Negative); URINE NITRITE-REFLEX NEGATIVE (Negative); URINE PROTEIN NEGATIVE (Negative); URINE SPECIFIC GRAVITY <= 1.005 (1.005-1.030); URINE UROBILINOGEN 0.2 E.U./dl (0.2-1.0)
[2019-08-29 01:35] LABS: AMP/METHAMP Negative (Negative); BARBITURATES Negative (Negative); BENZODIAZEPINES Negative (Negative); COCAINE Negative (Negative); METHADONE Negative (Negative); OPIATES Negative (Negative); PCP Negative (Negative); THC POSITIVE (Negative)
[2019-08-29 02:45] VITALS: BP 126/77
== END 2019-08-29 02:45 | disposition home or self-care (01) ==
LOC: M.ERS 00:47
PROVIDERS: Personal Emergency Response Attendant
DX: F10.129 Alcohol abuse with intoxication, unspecified (principal); Y90.8 Blood alcohol level of 240 mg/100 ml or more; R10.32 Left lower quadrant pain; Z90.49 Acquired absence of other specified parts of digestive tract; Z91.041 Radiographic dye allergy status; Z79.899 Other long term (current) drug therapy

== ENCOUNTER 2020-02-02 01:54 | Emergency (ER) | payer OTHER | END 2020-02-02 02:05 | LOC: M.ERS 01:54 | DX: Z02.89 Encounter for other administrative examinations (principal) ==

== ENCOUNTER 2020-04-18 18:46 | Emergency (ER) | payer OTHER ==
[~2020-04-18] VITALS: Ht 170.2 cm; Wt 52.2 kg
[2020-04-18 20:57] LABS: ABSOLUTE LYMPHOCYTES 1.1 thou/uL (0.8-5.3); ABSOLUTE MONOCYTES 0.4 thou/uL (0.0-1.2); ABSOLUTE NEUTROPHILS 5.4 thou/uL (1.6-8.1); BASOPHILS 0.3 %; EOSINOPHILS 0.4 %; HEMATOCRIT 43.9 % (42.0-52.0); HEMOGLOBIN 15.4 gm/dL (14.0-18.0); LYMPHOCYTES 16.3 %; MCHC 35.1 g/dL (28.0-37.0); MCV 96.7 fL (80.0-100.0); MONOCYTES 6.2 %; MPV 7.2 fl. (7.2-11.1); NUCLEATED RBCS 0 /100WBC; PLATELET COUNT* 222 thou/uL (150-400); POLYS 76.8 %; RBC 4.53 mil/uL (4.50-6.00); RDW-CV 13.6 % (10.5-14.5)
[2020-04-18 21:04] LABS: CALCIUM 8.9 mg/dL (8.5-10.1); CREATININE 0.9 mg/dL (0.6-1.3)
[2020-04-18 21:09] LABS: ALBUMIN 4.4 g/dL (3.4-5.0); TOTAL BILIRUBIN 0.6 mg/dL (<0.1-1.0); TOTAL PROTEIN 7.6 g/dL (6.4-8.2)
[2020-04-18] MEDS ORDERED: BENTYL 20 MG TA20 M1 PO (21:21)
[2020-04-18] MEDS ORDERED: ZOFRAN ODT4 MG DISSOLVE (21:21)
[2020-04-18 21:43] VITALS: BP 125/84
== END 2020-04-18 21:44 | disposition home or self-care (01) ==
LOC: M.ERS 18:46
PROVIDERS: Emergency Medicine Emergency Medical Services
DX: B34.9 Viral infection, unspecified (principal); K52.9 Noninfective gastroenteritis and colitis, unspecified; Z20.828 Contact with and (suspected) exposure to other viral communicable diseases; Z86.14 Personal history of Methicillin resistant Staphylococcus aureus infection; Z90.49 Acquired absence of other specified parts of digestive tract; Z88.6 Allergy status to analgesic agent; Z88.8 Allergy status to other drugs, medicaments and biological substances